=== PATIENT | male | born 1930 | race Caucasian/White ===

== ENCOUNTER 2019-09-29 07:18 | Observation (INO) ==
[2019-09-29 08:04] LABS: Basophils % 0.6 %; Eosinophils # 0.1 K/mcL (0.0-0.6); Eosinophils % 2.3 %; Hematocrit 37.8 % (37.5-50.1); Hemoglobin 12.5 g/dL (12.9-16.9); Immature Granulocytes % 0.4 % (0-4); Lymphocytes # 1.1 K/mcL (0.6-4.6); Lymphocytes % 23.4 %; Mean Corpuscular HGB Conc 33.1 g/dL (31.6-35.5); Mean Corpuscular Hemoglobin 33.2 pg (28.0-33.3); Mean Corpuscular Volume 100.5 fL (83.0-100.0); Mean Platelet Volume 9.5 fL (9.4-12.4); Monocytes # 0.3 K/mcL (0.0-1.3); Monocytes % 5.6 %; Neutrophils # 3.3 K/mcL (1.6-8.9); Platelet Count 191 K/mcL (140-400); Red Blood Count 3.76 M/mcL (4.19-5.50); Red Cell Distribution Width 13.2 % (11.5-14.5); Segmented Neutrophils % 67.7 %; White Blood Count 4.8 K/mcL (4.3-11.1)
[2019-09-29 08:10] LABS: Heparin anti-factor XA UFH 0.01 IU/mL (0.30-0.70)
[2019-09-29 08:22] LABS: BUN/Creatinine Ratio 22 (6-26); Blood Urea Nitrogen 25 mg/dL (8-23); Calcium 9.2 mg/dL (8.6-10.3); Carbon Dioxide 28 mEq/L (23-29); Chloride 103 mEq/L (98-107); Glucose 100 mg/dL (70-105); Osmolality,Calculated 292 (280-300); Potassium 4.1 mEq/L (3.5-5.1); Sodium 139 mEq/L (136-145); eGFR For African Americans > 60 (> 60); eGFR For Non-African Americans 59 (> 60)
[2019-09-29] MEDS ORDERED: *HR* Heparin 5,000 UNIT/ML VIAL IVP ONE (08:25)
[2019-09-29] MEDS ORDERED: Isovue-370 500 ML BOTTLE IVP ONE ×2 (08:25→09:37)
[2019-09-29] MEDS ORDERED: *HR* Heparin 5,000 UNIT/ML VIAL IVP PRN ×2 (08:25)
[2019-09-29] MEDS ORDERED: Heparin 25,000 UNIT/250 ML D5W 25,000 UNIT/250 ML IV.SOLN IVC SCH (08:30)
[2019-09-29 09:15] LABS: Prothrombin Time 11.1 Seconds (9.4-12.1)
[2019-09-29] MEDS ORDERED: Ringers Solution, Lactated 1,000 ML IVC SCH (12:45)
[2019-09-30 06:08] LABS: % Iron Saturation 35 % (20-55); Iron 108 mcg/dL (65-175); Transferrin 220 mg/dL (203-362)
[2019-09-30 06:27] LABS: Ferritin 220 ng/mL (20-250)
[2019-09-30 08:27] LABS: Folate > 22.3 ng/mL (3.0-16.0); Vitamin B12 850 pg/mL (250-1100)
[2019-09-30] MEDS ORDERED: Famotidine 20 MG TABLET PO SCH (09:00)
[2019-09-30] MEDS ORDERED: Aspirin 81 MG TAB.CHEW PO SCH (09:00)
[2019-09-30] MEDS ORDERED: BIOTIN 5 MG PO SCH (09:00)
[2019-09-30 09:10] LABS: Vitamin D 25 Hydroxy 47 ng/mL (30-80)
[2019-09-30 10:44] VITALS: BP 163/68
[2019-09-30 12:38] LABS: Hematocrit 37.8 % (37.5-50.1); Mean Corpuscular HGB Conc 34.4 g/dL (31.6-35.5); Mean Corpuscular Hemoglobin 33.3 pg (28.0-33.3); Mean Corpuscular Volume 96.9 fL (83.0-100.0); Mean Platelet Volume 9.7 fL (9.4-12.4); Platelet Count 186 K/mcL (140-400); Red Cell Distribution Width 13.3 % (11.5-14.5); White Blood Count 5.1 K/mcL (4.3-11.1)
[2019-09-30] MEDS ORDERED: Apixaban 5 MG TABLET PO SCH (12:45)
[2019-09-30 12:59] LABS: BUN/Creatinine Ratio 23 (6-26); Blood Urea Nitrogen 21 mg/dL (8-23); Carbon Dioxide 24 mEq/L (23-29); Chloride 104 mEq/L (98-107); Glucose 111 mg/dL (70-105); Osmolality,Calculated 288 (280-300); Potassium 4.1 mEq/L (3.5-5.1); Sodium 137 mEq/L (136-145); eGFR For African Americans > 60 (> 60); eGFR For Non-African Americans > 60 (> 60)
== END 2019-09-30 13:15 | disposition home or self-care (01) ==
LOC: EMEROOARM 07:18 → CDU 07:18 → SUATTDRO 11:19 → CDU 11:35
PROVIDERS: ADMIT Internal Medicine; ATTEND Internal Medicine